=== PATIENT | female | born 1950 | race Caucasian/White ===

== ENCOUNTER 2018-08-21 09:22 | Day surgery (SDC) | payer MEDICARE, MEDICAID ==
[~2018-08-21 09:22] MED LIST: PROPOFOL 200 MG INJ
[2018-08-21] MEDS ORDERED: PROPOFOL 20 ML (10:06)
[2018-08-21] MEDS ORDERED: ONDANSETRON 4 MG INJ IV (10:30)
== END 2018-08-21 11:42 | disposition home or self-care (01) ==
LOC: GIL 09:22
DX: R19.5 Other fecal abnormalities (principal); D12.2 Benign neoplasm of ascending colon; K64.8 Other hemorrhoids; I10 Essential (primary) hypertension; E78.5 Hyperlipidemia, unspecified; E66.9 Obesity, unspecified; Z68.34 Body mass index [BMI] 34.0-34.9, adult
CPT/HCPCS: 45380; 88305